=== PATIENT | female | born 1955 | race Caucasian/White ===

== ENCOUNTER 2018-07-05 03:19 | Inpatient (IN) | payer OTHER ==
[~2018-07-05] VITALS: Ht 149.9 cm; Wt 79.2 kg
[~2018-07-05 03:19] MED LIST: ASPIRIN EC325 M2 PO; COLACE100 M1 PO; DILAUDID2 M1 PO; IMITREX50 M1 PO; MIRALAX17 G1 PO; NEXIUM20 M1 PO; PROPRANOLOL HCL40 M1 PO; VESICARE5 M1 PO
[2018-07-05] MEDS ORDERED: IMITREX100 M1 PO (09:26)
[2018-07-05] MEDS ORDERED: MIRALAX17 G1 PO (14:02)
[2018-07-05] MEDS ORDERED: DILAUDID2 M1 PO (14:02)
[2018-07-05] MEDS ORDERED: ASPIRIN EC81 M1 PO (14:02)
[2018-07-05] MEDS ORDERED: COLACE100 M1 PO (14:02)
--- NOTE | 2018-07-05 14:06 | Patient Discharge Instructions ---
Discharge Instructions General Discharge Information You were seen/treated for: Right knee osteoarthritis You had these procedures: Right total knee arthroplasty Watch for these problems: Fever over 100.4 Redness and drainage from wound Unable to bear weight on right lower extremity Chest pain or shortness of breath No bath, but you may shower: Yes Other wound care: Daily dry dressing change Diet Continue normal diet: Yes Activity Activity Self Limited: Yes Activity Limited to: Weight bear as tolerated (with rolling walker) Acute Coronary Syndrome Inclusion Criteria At DC or during hospital stay patient has or had the following: ACS DIAGNOSIS No Discharge Core Measures Meds if any: Prescribed or Continued at Discharge Meds if any: NOT Prescribed or Continued at Discharge Congestive Heart Failure Inclusion Criteria At DC or during hospital stay patient has or had the following: CHF DIAGNOSIS No Discharge Core Measures Meds if any: Prescribed or Continued at Discharge Meds if any: NOT Prescribed or Continued at Discharge Cerebrovascular accident Inclusion Criteria At DC or during hospital stay patient has or had the following: CVA/TIA Diagnosis No Discharge Core Measures Meds if any: Prescribed or Continued at Discharge Meds if any: NOT Prescribed or Continued at Discharge Venous thromboembolism Inclusion Criteria VTE Diagnosis No VTE Type NONE VTE Confirmed by (Test) NONE Discharge Core Measures - Per Current guidelines, there needs to be overlap - treatment for the first 5 days of Warfarin therapy. - If discharged on Warfarin prior to 5 days of - overlap therapy, the patient will need to be - assessed for post discharge needs including - *Post discharge parental anticoagulation - *Warfarin and/or parental anticoagulation education - *Follow up date to check INR post discharge At least 5 days overlap therapy as Inpatient No Meds if any: Prescribed or Continued at Discharge Note: Overlap Therapy is Warfarin and Anticoagulant Meds if any: NOT Prescribed or Continued at Discharge
--- NOTE | 2018-07-05 14:06 | Admission Core Measures ---
Acute Coronary Syndrome (CM) ACS Core Measures Acute Coronary Syndrome Diagnosis No Congestive Heart Failure (NEW) CHF Core Measures Congestive Heart Failure Diagnosis No Cerebrovascular Accident CVA Core Measures CVA/TIA Diagnosis No Venous Thromboembolism VTE Core Edilson (View Protocol) VTE Risk Factors Surgery No Mechanical VTE Prophylaxis d/t N/A MechProphylax Ordered No VTE Pharm Prophylaxis d/t NA PharmProphylax ordered Problem List As ranked by this Provider includes Assessment & Plan 1. Unilateral primary osteoarthritis, right knee HOME MEDS Home Med List Aspirin (Ecotrin*) 81 MG TABLET.DR 1 TAB PO BID DVT PPX Docusate Sodium (Colace) 100 MG CAPSULE 1 CAP PO BID STOOL SOFTENER Esomeprazole Magnesium (Nexium) 20 MG CAPSULE.DR 1 CAP PO DAILY HEARTBURN ( Reported) Hydromorphone HCl (Dilaudid) 2 MG TABLET 1-2 TAB PO Q4-6 PRN PRN PAIN Polyethylene Glycol 3350 (Miralax) 17 GRAM POWD.PACK 1 PAC PO DAILY CONSTIPATION Propranolol HCl 40 MG TABLET 1 TAB PO BID BP (Reported) Solifenacin Succinate (Vesicare) 5 MG TABLET 1 TAB PO DAILY BLADDER (Reported ) Sumatriptan Succinate (Imitrex) 100 MG TABLET 1 TAB PO DAILY PRN pain ( Reported)
--- NOTE | 2018-07-05 14:11 | Surgical Discharge Summary ---
Visit Information Visit Dates Admission Date: 07/05/18 Discharge Date: 07/07/18 History of Present Illness Chief Complaint: Right knee pain Medical History Gastrointestinal: GERD Musculoskeletal: osteoarthritis History of MRSA: No History of VRE: No History of CDIFF: No Isolation History: Standard Surgical History Pertinent Surgical History: L TKA CARPAL TUNNEL TRIGER FINGER Psychosocial History Who Do You Live With? Spouse What is Your Primary Language? Bengali Review of Systems: As per [facility] Hospital Course Course Attending Physician: Delfin Azar MD Primary Care Physician: Travon Waterman MD Hospital Course: Patient tolerated procedure well. Postoperatively she was tolerating a regular diet, pain was well managed, voiding spontaneously, ambulating with physical therapy using a rolling walker. Patient's dressing was changed on postop day # 2. There were no signs of infection. Patient was cleared for discharge by physical therapy. She was given instructions to follow-up with Dr. Azar in 6 weeks and to call sooner with any questions or concerns. Allergies: Coded Allergies: nitrofurantoin (From MACROBID) (Intermediate, rash 07/05/18) Significant Procedures: Right total knee arthroplasty Disposition Summary Disposition Principal Diagnosis: Primary unilateral right knee osteoarthritis Additional Diagnosis: Status post right total knee replacement Discharge Disposition: home health services Discharge Instructions General Discharge Information Code Status: Full Code Patient's Diet: Regular Patient's Activity: Weight-bear as tolerated with rolling walker Follow-Up Instructions/Appts: Patient is to follow-up with Dr. Azar in 6 weeks and to call sooner with any questions or concerns Medications at Discharge Discharge Medications: Continue taking these medications: Propranolol HCl (Propranolol HCl) 40 MG TABLET 1 Tablet ORAL TWICE DAILY Comments: Last Taken: 10/16/17 Time: 9:30 AM Esomeprazole Magnesium (Nexium) 20 MG CAPSULE. 1 Capsule ORAL DAILY Comments: NOT GIVEN IN HOSPITAL Solifenacin Succinate (Vesicare) 5 MG TABLET 1 Tablet ORAL DAILY Sumatriptan Succinate (Imitrex) 100 MG TABLET 1 Tablet ORAL DAILY as needed for pain Start taking the following new medications: Aspirin (Ecotrin*) 81 MG TABLET. 1 Tablet ORAL TWICE DAILY Qty = 60 No Refills Docusate Sodium (Colace) 100 MG CAPSULE 1 Capsule ORAL TWICE DAILY Qty = 14 No Refills Instructions: STOP TAKING IF YOU DEVELOP LOOSE STOOL/DIARRHEA Polyethylene Glycol 3350 (Miralax) 17 GRAM POWD.PACK 1 Packet ORAL DAILY Qty = 7 No Refills Instructions: dissolve in water. STOP TAKING IF YOU DEVELOP LOOSE STOOL/DIARRHEA Hydromorphone HCl (Dilaudid) 2 MG TABLET 1-2 Tablet ORAL EVERY 4-6 HOURS NEEDED as needed for PAIN Qty = 36 No Refills Copies To: Columba ROYAL,Travon Massey
--- NOTE | 2018-07-05 15:03 | Operative Report ---
Operative/Inv Procedure Report Surgery Date: 07/05/18 Name of Procedure: Right Total knee replacement Pre-Operative Diagnosis: Primary right knee DJD Post-Operative Diagnosis: Same Estimated Blood Loss: 50ml to 100ml Surgeon/Cool Roofing Installer: Nissa ROYAL,Delfin Hugo Anesthesia: block Operative/Procedure Note Note: Description of Procedure: The patient was taken to the operating room and positively identified. After induction of spinal anesthesia and administration of appropriate pre-operative antibiotics, the patient was positioned supine on the operating room table and all bony prominences were well padded. A well-padded pneumatic tourniquet was placed on the right upper thigh. After performing a surgical timeout, the right lower extremity was prepped and draped in the usual sterile fashion. After exsanguination with Esmarch the tourniquet was inflated to 250mm of mercury. A standard medial parapatellar approach was made to the knee. This was carried down through skin and subcutaneous tissue to the level of the fascia. Meticulous hemostasis was maintained with Bovie electrocautery. The extensor mechanism and patellar retinaculum were opened sharply and the patella was everted. The infrapatellar fat was resected in order to improve exposure. Osteophytes were trimmed from the patella and femoral condyles and the patella was re-everted and tucked laterally. A medial release was performed and the cruciate ligaments were resected. The tibia was then subluxed anteriorly. Utilizing the appropriate extra-medullary guide, the proximal tibia was trimmed perpendicular to the long axis of the tibial shaft. Attention was then turned to the femur. After opening the medullary canal, the distal femoral cut was made in 6 degrees of valgus utilizing the appropriate intra-medullary guide. The extension gap was checked and found to be appropriate. The femur was then sized and the remainder of the femoral cuts were made with a size 3 4-in-1 femoral cutting guide. The flexion gap was checked and found to be symmetric and appropriate. The knee was then trialed with a size 3 femoral component, a size 3 tibial component and a size 13 mm polyethylene insert. The patella was trimmed to accept an A 29 patella. This yielded excellent range of motion, stability and patellar tracking. All trial components were removed and the knee was copiously irrigated with sterile saline. All components were cemented into place with [place] Simplex cement. All the components were of the Carolyn Triathlon knee system of the above stated sizes. The knee was again irrigated after cementation. The extensor mechanism and patellar retinaculum were repaired using interrupted #1 vicryl suture. The skin was re-approximated with 2-0 vicryl and closed with pedro. A sterile dressing was applied, the tourniquet was deflated, the patient was awakened and taken to the recovery room in satisfactory condition.
[2018-07-05 16:01] VITALS: BP 132/80
--- NOTE | 2018-07-05 16:30 | PN- Orthopedic ---
Subjective Subjective: Postop check Patient recovering well in room with only complaint of nausea. Objective Vital Signs and I&Os Vital Signs Date Time Temp Pulse Resp B/P B/P Pulse O2 O2 Flow FiO2 Mean Ox Delivery Rate 07/05 1601 96.9 77 18 132/80 97 Room Air Room Air Physical Exam: General- NAD Resperations- clear bialaterlly Cardiac-regular rate and rhythm Abdomen-soft nontender with positive bowel sounds Extremities-dressing is clean and dry, thigh is soft. Calves are soft bilaterally and non-tenderness. Distal sensory and motor function is intact. 2 + dorsalis pedis pulse bilaterally Current Medications: Current Medications Sig/Carloz Start time Last Medication Dose Route Stop Time Status Admin Acetaminophen 1,000 MG Q6 07/05 1800 AC IV 07/06 1201 Acetaminophen 0 .STK-MED ONE 07/05 1009 DC PO Acetaminophen 975 MG ONCE 07/05 0000 DC PO 07/05 2359 Aspirin 81 MG BID 07/05 2100 AC PO Cefazolin Sodium 2 GM IQ8 07/05 1600 AC N/A 1 UNIT IV 07/06 0029 Cefazolin Sodium 2,000 MG ONCE 07/05 0000 DC IV 07/05 2359 Dextrose/Sodium 1,000 ML .[id number] 07/05 1600 AC 07/05 Chloride IV 1558 Docusate Sodium 100 MG BID 07/05 2100 AC PO Hydromorphone HCl 2 MG Q4P PRN 07/05 1600 AC PO Hydromorphone HCl 4 MG Q4P PRN 07/05 1600 AC PO Ketorolac 15 MG Q6P PRN 07/05 1600 AC Tromethamine IV 07/08 1556 Midazolam HCl 0 .STK-MED ONE 07/05 1040 DC .ROUTE Midazolam HCl 0 .STK-MED ONE 07/05 0800 DC .ROUTE Morphine Sulfate 2 MG Q2P PRN 07/05 1600 AC IV Morphine Sulfate 0 .STK-MED ONE 07/05 0801 DC .ROUTE Omeprazole 40 MG DAILY AC 07/06 0700 AC PO Ondansetron HCl 4 MG Q6P PRN 07/05 1600 AC 07/05 IV 1623 Ondansetron HCl 0 .STK-MED ONE 07/05 1450 DC .ROUTE Oxybutynin Chloride 5 MG DAILY 07/06 09 AC PO Oxycodone HCl 0 .STK-MED ONE 07/05 1008 DC PO Oxycodone HCl 10 MG ONCE 07/05 0000 DC PO 07/05 2359 Polyethylene Glycol 17 GM DAILY 07/06 0900 AC PO Propranolol HCl 40 MG BID 07/05 2100 AC PO Ramelteon 8 MG AT BEDTIME NEED.. 07/05 1600 AC PO Tranexamic Acid 0 .STK-MED ONE 07/05 0801 DC IV Assessment/Plan Assessment/Plan 63-year-old female status post right total knee arthroplasty postop day 0. Stable. Patient having nausea, RN is giving Zofran now. Antiemetics as needed pain management PT- WBAT with rolling walker DVT PPX- ASA BID DC IVF IN AM 24 hour perioperative antibiotics FU AM labs Advance diet as tolerated Regular home medications Encourage IS DC planning Dressing change Post-op day2 Core Measures Venous Thromboembolism VTE Risk Factors Surgery No Mechanical VTE Prophylaxis d/t N/A MechProphylax Ordered No VTE Pharm Prophylaxis d/t NA PharmProphylax ordered
[2018-07-05 18:09] VITALS: BP 128/78
[2018-07-05 19:56] VITALS: BP 110/70
[2018-07-05 21:58] VITALS: BP 136/66
[2018-07-06 01:51] VITALS: BP 90/60
[2018-07-06 06:44] VITALS: BP 110/66
[2018-07-06 08:26] LABS: ABSOLUTE BASOPHIL COUNT 0 /CUMM (0.0-0.2); ABSOLUTE EOSINOPHIL COUNT 0 /CUMM (0.0-0.7); ABSOLUTE GRANULOCYTE CT 11.4 /CUMM (1.4-6.5); ABSOLUTE LYMPH COUNT 1.4 /CUMM (1.2-3.4); ABSOLUTE MONOCYTE COUNT 0.7 /CUMM (0.10-0.60); BASOPHIL % 0.2 % (0.0-2.0); EOSINOPHIL % 0 % (0-5); GRANULOCYTE % 83.9 % (42.2-75.2); HEMATOCRIT 35.6 % (37-47); MEAN CORPUSCULAR HGB 30.1 PG (27.0-31.0); MEAN CORPUSCULAR HGB CONC 33.4 G/DL (33.0-37.0); MEAN PLATELET VOLUME 8.4 FL (7.4-10.4); PLATELET COUNT 243 /CUMM (130-400); RBC DISTRIBUTION WIDTH 14.3 % (11.5-14.5); RED BLOOD CELL CT 3.95 /CUMM (4.20-5.40)
[2018-07-06 09:16] LABS: WHITE BLOOD CELL COUNT 13.5 /CUMM (4.8-10.8)
--- NOTE | 2018-07-06 09:46 | PN- Orthopedic ---
Subjective Subjective: No acute post operative events. Pt had some ponv that has since resolved, she is tolerating regular diet. Denies chest pain, shortness of breath and difficulty breathing. Has voided. Has ambulated with PT and cleared stairs. She is noting some residual numbness to right foot and toes. Objective Vital Signs and I&Os Vital Signs Date Time Temp Pulse Resp B/P B/P Pulse O2 O2 Flow FiO2 Mean Ox Delivery Rate 07/06 0754 67 110/66 07/06 0644 97.5 70 20 110/66 96 Room Air 07/06 0151 97.5 66 20 90/60 93 Room Air 07/05 2158 97.4 76 18 136/66 94 Room Air 07/05 2043 74 110/70 07/05 1956 94.3 74 16 110/70 93 Room Air 07/05 1809 96.0 68 18 128/78 95 Room Air Room Air 07/05 1637 Room Air 07/05 1601 96.0 77 18 132/80 97 Room Air Room Air Intake & Output 07/06 1600 07/06 0800 07/06 0000 07/05 1600 07/05 0800 07/05 0000 Intake Total 930 Output Total 400 1000 1075 Balance -400 -1000 -145 Intake, IV 450 Intake, Oral 480 Output, 175 Emesis Output, Urine 400 1000 900 Patient 175 lb 175 lb Weight Weight Bed scale Bed scale Measurement Method Physical Exam: General: Alert and oriented x3, no acute distress Cardiac: RRR, s1s2 Pulm: CTA bilaterally, nonlabored respiratory effort Abdomen: Soft, non-tender, non-distended Extremities: Moves all extremities, distal sensation grossly intact. Right foot/ankle, motor limited in plantar flexion only, dorsi flexion 5/5. Bilateral calves soft and non-tender Surgical site: Right knee, dressing dry intact Assessment/Plan Assessment/Plan This is a 63 year old female, POD 1, s/p R TKR, c/o residual numbness to right foot -Alejo bandage loosened at ankle -Follow up with Anesthesia if no relief from loose dressing -OOB, WBAT, cleared PT -Continue current pain regimen -DC iv fluids -Follow up am labs, has hx of acute blood loss anemia with prior surgeries and has been transfused, is asymptomtic thus far -Anticipate dc to home in 1-2 days pending resolution of numbness Will discuss plan of care with Dr. Azar Core Measures Venous Thromboembolism VTE Risk Factors Surgery No Mechanical VTE Prophylaxis d/t N/A MechProphylax Ordered No VTE Pharm Prophylaxis d/t NA PharmProphylax ordered
[2018-07-06 10:03] VITALS: BP 90/58
[2018-07-06 14:40] VITALS: BP 100/65
[2018-07-06 21:29] VITALS: BP 100/60
--- NOTE | 2018-07-07 06:42 | PN- Orthopedic ---
Subjective Subjective: pod#2 s/p right tka no major issues overnight no complaints now has cleared pt for home dc Objective Vital Signs and I&Os Vital Signs Date Time Temp Pulse Resp B/P B/P Pulse O2 O2 Flow FiO2 Mean Ox Delivery Rate 07/06 2129 98.4 88 18 100/60 96 Room Air 07/06 2119 88 100/60 07/06 1440 97.4 62 20 100/65 94 Room Air 07/06 1003 97.7 65 18 90/58 99 Room Air 07/06 0754 67 110/66 07/06 0644 97.5 70 20 110/66 96 Room Air Intake & Output 07/07 0800 07/07 0000 07/06 1600 07/06 0800 07/06 0000 07/05 1600 Intake Total 260 324 1225 600 930 Output Total 600 697 731 5789 1075 Balance -480 -100 600 -450 -145 Intake, IV 200 600 450 Intake, Oral 120 500 800 480 Number 0 Bowel Movements Output, 50 175 Emesis Output, Urine 600 470 805 9059 900 Patient 175 lb 175 lb Weight Weight Bed scale Bed scale Measurement Method Physical Exam: cv: rrr lungs: clear abd: soft, +bs ext: drsg changed, wound c/d/i no calf tenderness distal cms intact Assessment/Plan Assessment/Plan ortho stable plan hme d/c today Core Measures Venous Thromboembolism VTE Risk Factors Surgery No Mechanical VTE Prophylaxis d/t N/A MechProphylax Ordered No VTE Pharm Prophylaxis d/t NA PharmProphylax ordered
[2018-07-07 06:43] VITALS: BP 100/60
--- NOTE | 2018-07-07 07:25 | PN- Student ---
Subjective Subjective: Pt has 5/10 R knee pain, which she states is manageable. Small amount of pain also present in R anterior lower leg. Pt also has erythematous rash on arms; started yesterday, went away with benadryl, and then came back at 1am this morning. Denies all other ROS. Tolerating PO diet. Urinating independently. Passed stool yesterday. Able to walk with assistance. Pt states she would like to go home today. Objective Objective: Vitals: normal and stable I/O: normal Exam: General: resting comfortably in bed in NAD Lungs: CTA BL Cardiac: RRR, no M, R, G Abdomen: + BS, soft, non-distended, non-tender Extremities: No gross swelling in knees BL. DP/PT pulses 2+ BL, some swelling in lower legs. Mami negative BL. Lacy erythematous rash present on lateral forearms BL. Incision: R knee dressing clean, dry, and intact. Incision well-approximated by pedro. No erythema, bleeding, pain, swelling, or discharge. Labs: CBC pending Imaging: No new imaging Assessment/Plan Plan: Pt is a 63 y/o F w/ PMH of overactive bladder currently on POD#2 s/p R TKR. Pt is stable. Neuro: pain under control with dilaudid GI: normal diet : urinating independently Wound: remove dressing in 1-2 days or replace as needed Dispo/other: Encourage ambulation and PT Discharge home F/u outpatient
[2018-07-07 07:28] VITALS: BP 100/60
[2018-07-07 07:57] LABS: ABSOLUTE BASOPHIL COUNT 0 /CUMM (0.0-0.2); ABSOLUTE EOSINOPHIL COUNT 0.1 /CUMM (0.0-0.7); ABSOLUTE GRANULOCYTE CT 6.2 /CUMM (1.4-6.5); ABSOLUTE MONOCYTE COUNT 0.8 /CUMM (0.10-0.60); BASOPHIL % 0.4 % (0.0-2.0); EOSINOPHIL % 1.6 % (0-5); GRANULOCYTE % 67.6 % (42.2-75.2); MEAN CORPUSCULAR HGB 30.2 PG (27.0-31.0); MEAN CORPUSCULAR HGB CONC 33.6 G/DL (33.0-37.0); MEAN CORPUSCULAR VOLUME 89.9 FL (81.0-99.0); MEAN PLATELET VOLUME 8.7 FL (7.4-10.4); PLATELET COUNT 217 /CUMM (130-400); RBC DISTRIBUTION WIDTH 14.9 % (11.5-14.5); RED BLOOD CELL CT 3.67 /CUMM (4.20-5.40); WHITE BLOOD CELL COUNT 9.2 /CUMM (4.8-10.8)
== END 2018-07-07 13:18 | disposition home health service (06) | DRG 470 ==
LOC: SDA 03:19 → ENRESERV 15:03 → ENTRNSPT 15:27 → EDTRNSPT 15:36 → EDTRNSPTSTS 15:36 → 2NB 15:47 → CMPTRNSPT 15:53 → ENPENDDIS 07-07 07:29 → ENTRNSPT 07-07 13:01 → EDTRNSPTSTS 07-07 13:15 → 2NB 07-07 13:18 → CMPTRNSPT 07-07 13:27
PROVIDERS: Physician Assistant Surgical
PROC: 3E0T3BZ Introduction of Anesthetic Agent into Peripheral Nerves and Plexi, Percutaneous Approach (ICD-10-PCS; principal; 2018-07-05)
PROC: 0SRD0J9 Replacement of Left Knee Joint with Synthetic Substitute, Cemented, Open Approach (ICD-10-PCS; principal; 2018-07-05)
DX: M17.11 Unilateral primary osteoarthritis, right knee (principal); N32.81 Overactive bladder; K21.9 Gastro-esophageal reflux disease without esophagitis; Z96.652 Presence of left artificial knee joint; Z88.1 Allergy status to other antibiotic agents; I10 Essential (primary) hypertension; Z96.642 Presence of left artificial hip joint
CPT/HCPCS: 2NBP; 36592; 82436; 97110-GO; 97116-GO; 97161-GP; 97530-GO; C1713; C9290; J0131; J0690; J1200; J2405; J2765; J3490; J7042